=== PATIENT | male | born 1955 | race Caucasian/White ===

== ENCOUNTER 2018-03-31 19:37 | Emergency (ER) | payer SELFPAY ==
[2018-03-31] MEDS ORDERED: Furosemide 40 MG/4 ML VIAL ONE (20:36)
[2018-03-31 21:07] LABS: ALT (SGPT) 17 U/L (8-55); AST (SGOT) 25 U/L (5-34); Albumin 3.8 g/dL (3.4-4.8); Alkaline Phosphatase 71 U/L (40-150); Anion Gap 15 mmol/L (10-20); BUN (Urea Nitrogen) 19 mg/dL (8.4-25.7); Bilirubin, Total 1.6 mg/dL (0.2-1.2); Calc. Creatinine Clearance 0 mL/min (70-130); Calcium 9.5 mg/dL (7.8-10.44); Carbon Dioxide 23 mmol/L (23-31); Chloride 103 mmol/L (98-107); Estimated GFR-MDRD 41; Globulin 3.2 g/dL (2.4-3.5); Glucose 320 mg/dL (80-115); Potassium 4.3 mmol/L (3.5-5.1); Sodium 137 mmol/L (136-145)
[2018-03-31 21:08] LABS: #Basophils 0.1 thou/uL (0.0-0.2); #Eosinphils 0.1 thou/uL (0.0-0.7); #Lymphocytes 1.5 thou/uL (1.20-3.40); #Monocytes 0.8 thou/uL (0.11-0.59); #Neutrophils 4.8 thou/uL (1.40-6.50); %Basophils 1.1 % (0.0-1.0); %Eosinophils 1.1 % (0.0-10.0); %Lymphocytes 20.7 % (21.0-51.0); %Monocytes 10.5 % (0.0-10.0); %Neutrophils 66.7 % (42.0-75.0); Hemoglobin 14.6 g/dL (14.0-18.0); Mean Corpuscular Hemoglobin 30.9 pg (27.0-31.0); Mean Corpuscular Volume 96.6 fL (78.0-98.0); Mean Platelet Volume 9.9 fL (7.4-10.4); PLT Morphology Comment Appears Decreased; Platelet Count 113 thou/uL (130-400); RBC Distribution Width 12.9 % (11.5-14.5); RBC Morphology Normal; Red Blood Cell (RBC) Count 4.72 mill/uL (4.70-6.10); Troponin I 0.186 ng/mL (< 0.028); White Blood Cell (WBC) Count 7.1 thou/uL (4.8-10.8)
[2018-03-31] MEDS ORDERED: Aspirin 325 MG TAB ONE (21:18)
[2018-03-31] MEDS ORDERED: Insulin Regular 300 UNITS/3 ML VIAL ONE (21:18)
--- NOTE | 2018-03-31 21:20 | RAD ---
CHEST ONE VIEW: HISTORY: Dyspnea. COMPARISON: None. FINDINGS: Enlarged cardiac silhouette. Pulmonary vessels are prominent. Costophrenic angles are clear. No ma sses or consolidation. No pneumothorax or osseous abnormality. IMPRESSION: 1. Cardiomegaly. 2. Pulmonary vascular prominence. POS: [facility]
[2018-03-31 21:36] LABS: CKMB 7.3 ng/mL (0-6.6)
[2018-03-31 21:42] LABS: Bilirubin Small (Negative); Blood, Urine Trace (Negative); Clarity Clear (Clear); Glucose, Urine (Dipstick) 250 mg/dL (Negative); Leukocyte Negative (Negative); Nitrite Negative (Negative); Protein, Urine (Dipstick) > or equal to 300 mg/dL (Neg-Trace); pH, Urine 5.5 (5.0-9.0)
[2018-03-31 21:47] LABS: Specific Gravity, Urine 1.023 (1.002-1.036)
[2018-03-31 21:48] LABS: Bacteria/HPF Rare-Few HPF (None Seen); Hyaline Casts/LPF 0-3 HYALINE CAST LPF (0-3 Hyaline)
== END 2018-03-31 22:34 | disposition short-term general hospital (02) ==
LOC: MADERS 19:37
DX: I11.0 Hypertensive heart disease with heart failure (principal); I50.9 Heart failure, unspecified; E11.65 Type 2 diabetes mellitus with hyperglycemia; I48.91 Unspecified atrial fibrillation; G47.30 Sleep apnea, unspecified; F32.9 Major depressive disorder, single episode, unspecified
CPT/HCPCS: 36415; 36416; 71045; 80053; 81003; 81015; 82553; 83880; 84484; 85025; 87086; 93005; 94760; 96374; 96375; J1815; J1940